=== PATIENT | male | born 1980 ===

== ENCOUNTER 2017-10-30 01:50 | Emergency (ER) | payer SELFPAY ==
[2017-10-30 02:00] VITALS: RESP 20; O2SAT 96
--- NOTE | 2017-10-30 02:44 | C.PDOC ---
History Of Present Illness 37 year old male is brought to the ED by EMS after being found inebriated outside a store. Patient is clearly intoxicated, alcohol on breath. No evidence of trauma Time Seen by Provider: 10/30/17 02:02 Chief Complaint (Nursing): Substance Abuse History Per: EMS History/Exam Limitations: intoxication Onset/Duration Of Symptoms: Hrs Current Symptoms Are (Timing): Still Present Suicide/Self Injury Attempted (Context): None Modifying Factor(s): Alcohol Associated Symptoms: denies: Depression, Suicidal Thoughts, Suicidal Plan Recent travel outside of the [place]: No Additional History Per: EMS Past Medical History Reviewed: Historical Data, Nursing Documentation, Vital Signs Vital Signs: Last Vital Signs Temp 97.6 F 10/30/17 04:48 Pulse 70 10/30/17 04:48 Resp 20 10/30/17 04:48 BP 101/67 10/30/17 04:48 Pulse Ox 96 10/30/17 06:54 - Medical History PMH: No Chronic Diseases Surgical History: No Surg Hx Family History: States: Unknown Family Hx - Social History Hx Alcohol Use: Yes Hx Substance Use: No (unobtainable) Review Of Systems Review Of Systems: ROS cannot be obtained secondary to pt's inabilty to answer questions. Physical Exam - Physical Exam Appears: Other (intoxicated, unconscious) Skin: Warm, Dry Head: Normacephalic Eye(s): bilateral: Normal Inspection Neck: Supple Chest: Symmetrical Cardiovascular: Rhythm Regular Respiratory: No Rales, No Rhonchi, No Wheezing Gastrointestinal/Abdominal: Soft, No Tenderness, No Guarding, No Rebound Extremity: No Tenderness, No Swelling Extremity: Bilateral: Atraumatic, Normal Color And Temperature, Normal ROM Neurological/Psych: Other (intoxicated, unconscious) Gait: Unable To Assess ED Course And Treatment O2 Sat by Pulse Oximetry: 96 (ON RA) Pulse Ox Interpretation: Normal Reevaluation Time: 06:53 Reassessment Condition: Improved Disposition Counseled Patient/Family Regarding: Studies Performed, Diagnosis, Need For Followup - Disposition Referrals: [facility] [Outside] Disposition: HOME/ ROUTINE Disposition Time: 05:45 Condition: FAIR Instructions: Alcohol Abuse and Alcoholism (DC) Forms: [employer] ([place]) - Clinical Impression Clinical Impression: Alcohol intoxication - Scribe Statement The provider has reviewed the documentation as recorded by the Scribe Carter Hernandez All medical record entries made by the Bulmaro were at my direction and personally dictated by me. I have reviewed the chart and agree that the record accurately reflects my personal performance of the history, physical exam, medical decision making, and the department course for this patient. I have also personally directed, reviewed, and agree with the discharge instructions and disposition.
[2017-10-30 04:49] VITALS: BP 101/67; PULSE 70; TEMP 97.6
[2017-10-30] MEDS ORDERED: Ammonia 2% Inhalant ONE (05:47)
== END 2017-10-30 05:50 | disposition home or self-care (01) ==
LOC: C.ER 01:50 → EDBD 01:50 → C.ER 05:50
DX: F10.129 Alcohol abuse with intoxication, unspecified (principal)